=== PATIENT | male | born 1940 | race Caucasian/White ===

== ENCOUNTER 2017-08-13 07:58 | Emergency (ER) | payer MEDICARE, OTHER ==
[2017-08-13] MEDS ORDERED: Sodium Chloride 0.9% 10 ML Syringe FLUSH PRN (08:31)
--- NOTE | 2017-08-13 08:47 | EDM.PDOC ---
ED HPI GENERAL MEDICAL PROBLEM - General Chief Complaint: General Stated Complaint: ER Time Seen by Provider: 08/13/17 07:59 Source of Information: Reports: Patient, Family, RN, RN Notes Reviewed History Limitations: Reports: No Limitations - History of Present Illness INITIAL COMMENTS - FREE TEXT/NARRATIVE: Patient presents to the ED at [facility] complaining of lightheadedness, sweaty, nauseated, and feels like the room was spinning. Patient states the symptoms started this AM while he was on the elliptical. Patient denies any chest pain or SOB. No focal neurological deficits. No diarrhea or vomiting. Patient states he had a similar episode a couple of months ago, but it was of shorter duration and spontaneously resolved. He has a history of diabetes but this is diet controlled. He states he is trying to stay well hydrated with good PO fluid intake. No recent URI's. He feels steady on his feet. He has not fallen or hit his head. Onset: Today, Sudden Onset Date: 08/13/17 - Related Data Allergies Allergy/AdvReac Type Severity Reaction Status Date / Time lactose Allergy Other Verified 08/13/17 08:25 morphine Allergy Headache Verified 08/13/17 08:25 Home Meds: Home Meds Aspirin [Halfprin] 1 tab PO DAILY 01/13/14 [History] Bimatoprost [LUMIGAN 0.01% Ophth Soln] 1 drop EYERT BEDTIME 01/13/14 [History] Brimonidine [Alphagan P 0.15% Ophth Soln] 1 drop EYERT BID 01/13/14 [History] Dorzolamide HCl/Timolol Maleat [Cosopt Eye Drops] 1 drop EYEBOTH BID 01/13/14 [ History] Enalapril Maleate [Vasotec] 20 mg PO DAILY 01/13/14 [History] Hydrochlorothiazide 25 mg PO DAILY 01/13/14 [History] Metoprolol Tartrate [Lopressor] 12.5 mg PO BID 01/13/14 [History] Multivitamin [Multi Vitamin Daily] 1 tab PO DAILY 01/13/14 [History] Nitroglycerin [Nitrostat] 1 tab SL ASDIRECTED PRN 01/13/14 [History] Rivaroxaban [Xarelto] 20 mg PO DAILY 01/13/14 [History] Glucosamine/D3/Boswellia Aleyda [Glucosamine Complex Tablet] 1 cap PO DAILY 12/16 [History] atorvaSTATin [Lipitor] 40 mg PO DAILY 12/16/16 [History] Cholecalciferol (Vitamin D3) [Vitamin D3] 1,000 unit PO DAILY 08/13/17 [History] [place]-3/DHA/Epa/Fish Oil [[place]-3 Fish Oil 1,000 MG Sfgl] 1 cap PO DAILY [History] Past Medical History HEENT History: Reports: Cataract, Glaucoma Cardiovascular History: Reports: Afib, Aneurysm, Arrhythmia, CAD, High Cholesterol, Hypertension, [place], PTCA Other Cardiovascular History: LEFT VENTRICULAR ANEURYSM. ACSENDING AORTIC ANEURYSM Respiratory History: Reports: None Gastrointestinal History: Reports: Colon Polyp Genitourinary History: Reports: BPH, Renal Calculus, Other (See Below) Other Genitourinary History: HYDROCELE Musculoskeletal History: Reports: Arthritis Neurological History: Reports: None Psychiatric History: Reports: None Endocrine/Metabolic History: Reports: Diabetes, Type II, Obesity/BMI 30+ Hematologic History: Reports: None Immunologic History: Reports: None Oncologic (Cancer) History: Reports: Basal Cell Carcinoma, Prostate - Past Surgical History Head Surgeries/Procedures: Reports: None HEENT Surgical History: Reports: Cataract Surgery Musculoskeletal Surgical History: Reports: Arthroscopic Procedure Dermatological Surgical History: Reports: Skin Biopsy Social & Family History - Tobacco Use Smoking Status *Q: Unknown Ever Smoked Years of Tobacco use: 28 Month Tobacco Last Used: 28 years ago - Alcohol Use Days Per Week of Alcohol Use: 0 - Recreational Drug Use Recreational Drug Use: No Drug Use in Last 12 Months: No ED ROS GENERAL - Review of Systems Review Of Systems: See Below Constitutional: Reports: Diaphoresis. Denies: Fever, Chills, Weakness HEENT: Reports: Vertigo. Denies: Vision Change Respiratory: Denies: Shortness of Breath, Cough Cardiovascular: Reports: Lightheadedness. Denies: Chest Pain, Palpitations GI/Abdominal: Reports: Nausea. Denies: Abdominal Pain, Vomiting Skin: Reports: Diaphoresis Neurological: Reports: Dizziness. Denies: Headache, Numbness, Paresthesia, Tingling ED EXAM, GENERAL - Physical Exam Exam: See Below Exam Limited By: No Limitations General Appearance: Alert, No Apparent Distress Respiratory/Chest: No Respiratory Distress, Lungs Clear, Normal Breath Sounds Cardiovascular: Normal Peripheral Pulses, No Edema, Bradycardia Peripheral Pulses: 2+: Radial (L), Radial (R) GI/Abdominal: Normal Bowel Sounds, Soft, Non-Tender Neurological: Alert, Oriented Skin Exam: Warm, Dry, Intact, Normal Color EKG INTERPRETATION EKG Date: 08/13/17 Time: 08:07 Rhythm: NSR Rate (Beats/Min): 51 [place]: LAD-Left [place] Deviation P-Wave: Present QRS: Normal ST-T: Normal QT: Normal IA/PQ Interval: 0.17 EKG Interpretation Comments: 1. Sinus Bradycardia 2. Marked Left axis deviation 3. IVCD Course - Vital Signs Last Recorded V/S: Last Vital Signs Temp 35.9 C 08/13/17 07:58 Pulse 49 L 08/13/17 09:05 Resp 10 L 08/13/17 09:05 BP 126/79 08/13/17 09:05 Pulse Ox 98 08/13/17 09:05 Orthostatic Blood Pressure [ 132/73 Standing] Orthostatic Blood Pressure [ 124/84 Sitting] Orthostatic Blood Pressure [ 139/79 Supine] - Orders/Labs/Meds Orders: Active Orders 24 hr Category Date Time Status EKG 12 Lead [EKG Documentation Completion] [RC] STAT Care 08/13/17 08:02 Active Orthostatic Vital Signs [RC] ONETIME Care 08/13/17 09:21 Active Chest 2V [CR] Stat Exams 08/13/17 08:30 Taken Sodium Chloride 0.9% [Saline Flush] Med 08/13/17 08:31 Active 10 ml FLUSH ASDIRECTED PRN Peripheral IV Insertion Adult [OM.PC] Routine Oth 08/13/17 08:31 Ordered Medication Orders Sodium Chloride (Saline Flush) 10 ml FLUSH ASDIRECTED PRN PRN Reason: Keep Vein Open Labs: Laboratory Tests 08/13/17 08/13/17 08/13/17 Range/Units 08:03 08:14 08:14 WBC 5.8 (4.0-10.0) x10^3/uL RBC 4.36 L (4.5-6.0) x10^6/uL Hgb 14.1 (14.0-18.0) g/dL Hct 41.1 (40.0-52.0) % MCV 94.3 H D (78.0-93.0) fL MCH 32.3 H (26.0-32.0) pg MCHC 34.3 (32.0-36.0) g/dL RDW Coeff of Jamie 13.0 (10.0-15.0) % Plt Count 191 (130-400) x10^3/uL Neut % (Auto) 71.4 (50.0-80.0) % Lymph % (Auto) 13.4 L (25.0-50.0) % Brule % (Auto) 9.4 (2.0-11.0) % Eos % (Auto) 5.3 H (0.0-4.0) % Baso % (Auto) 0.5 (0.2-1.2) % PT (9.8-11.8) SEC INR (2.0-3.5) Sodium 141 (136-145) mmol/L Potassium 3.7 (3.5-5.1) mmol/L Chloride 105 (98-107) mmol/L Carbon Dioxide 26 (21-32) mmol/L BUN 17 (7-18) mg/dL Creatinine 1.2 (0.70-1.30) mg/dL Est Cr Clr Drug Dosing TNP Estimated GFR (MDRD) 59 Glucose 152 H (74-106) mg/dL POC Glucose 148 H (74-106) mg/dL Calcium 9.4 (8.5-10.1) mg/dL Corrected Calcium 9.80 (8.5-10.1) mg/dL Magnesium 1.7 L (1.8-2.4) mg/dL Total Bilirubin 1.0 (0.2-1.0) mg/dL AST 27 (15-37) U/L ALT 29 (16-63) U/L Alkaline Phosphatase 89 (46-116) U/L Creatine Kinase 62 (39-308) U/L Troponin I < 0.017 (<=0.056) ng/mL NT-Pro-B Natriuret Pep (<=450) pg/mL Total Protein 7.6 (6.4-8.2) g/dL Albumin 3.5 (3.4-5.0) g/dL Globulin 4.1 Albumin/Globulin Ratio 0.85 Urine Color (YELLOW) Urine Appearance (CLEAR) Urine pH (5.0-8.0) Ur Specific [place] Urine Protein (NEGATIVE) mg/dL Urine Glucose (UA) (NEGATIVE) mg/dL Urine Ketones (NEGATIVE) mg/dL Urine Occult Blood (NEGATIVE) Urine Nitrite (NEGATIVE) Urine Bilirubin (NEGATIVE) Urine Urobilinogen (0.2) EU/dL Ur Leukocyte Esterase (NEGATIVE) Urine RBC (NOT SEEN) /HPF Urine WBC (NOT SEEN) /HPF Ur Squamous Epith Cells (NEGATIVE) /HPF Urine Bacteria (NEGATIVE) /HPF Urine Mucus (NEGATIVE) /LPF 08/13/17 08/13/17 08/13/17 Range/Units 08:14 08:14 08:50 WBC (4.0-10.0) x10^3/uL RBC (4.5-6.0) x10^6/uL Hgb (14.0-18.0) g/dL Hct (40.0-52.0) % MCV (78.0-93.0) fL MCH (26.0-32.0) pg MCHC (32.0-36.0) g/dL RDW Coeff of Jamie (10.0-15.0) % Plt Count (130-400) x10^3/uL Neut % (Auto) (50.0-80.0) % Lymph % (Auto) (25.0-50.0) % [place] % (Auto) (2.0-11.0) % Eos % (Auto) (0.0-4.0) % Baso % (Auto) (0.2-1.2) % PT 11.4 (9.8-11.8) SEC INR 1.1 L (2.0-3.5) Sodium (136-145) mmol/L Potassium (3.5-5.1) mmol/L Chloride (98-107) mmol/L Carbon Dioxide (21-32) mmol/L BUN (7-18) mg/dL Creatinine (0.70-1.30) mg/dL Est Cr Clr Drug Dosing Estimated GFR (MDRD) Glucose (74-106) mg/dL POC Glucose (74-106) mg/dL Calcium (8.5-10.1) mg/dL Corrected Calcium (8.5-10.1) mg/dL Magnesium (1.8-2.4) mg/dL Total Bilirubin (0.2-1.0) mg/dL AST (15-37) U/L ALT (16-63) U/L Alkaline Phosphatase (46-116) U/L Creatine Kinase (39-308) U/L Troponin I (<=0.056) ng/mL NT-Pro-B Natriuret Pep 79 (<=450) pg/mL Total Protein (6.4-8.2) g/dL Albumin (3.4-5.0) g/dL Globulin Albumin/Globulin Ratio Urine Color Yellow (YELLOW) Urine Appearance Clear (CLEAR) Urine pH 7.0 (5.0-8.0) Ur Specific [place] 1.020 Urine Protein 30 H (NEGATIVE) mg/dL Urine Glucose (UA) Negative (NEGATIVE) mg/dL Urine Ketones Negative (NEGATIVE) mg/dL Urine Occult Blood Trace-intact H (NEGATIVE) Urine Nitrite Negative (NEGATIVE) Urine Bilirubin Negative (NEGATIVE) Urine Urobilinogen 1.0 (0.2) EU/dL Ur Leukocyte Esterase Negative (NEGATIVE) Urine RBC 0-5 (NOT SEEN) /HPF Urine WBC Not seen (NOT SEEN) /HPF Ur Squamous Epith Cells Rare (NEGATIVE) /HPF Urine Bacteria Not seen (NEGATIVE) /HPF Urine Mucus Not seen (NEGATIVE) /LPF Meds: Medications Generic Name Dose Route Start Last Admin Trade Name Freq PRN Reason Stop Dose Admin Sodium Chloride 10 ml 08/13/17 08:31 Saline Flush FLUSH ASDIRECTED PRN Keep Vein Open Discontinued Medications Generic Name Dose Route Start Last Admin Trade Name Freq PRN Reason Stop Dose Admin Ondansetron HCl 4 mg 08/13/17 08:58 08/13/17 09:03 Zofran IVPUSH 08/13/17 08:59 4 mg ONETIME ONE Administration Departure - Departure Time of Disposition: 09:35 Disposition: DC/Tfer to [facility] 02 Clinical Impression: Symptomatic bradycardia, Dizziness, Nausea, Lightheadedness - Discharge Information Forms: Interfacility Transfer EMTALA ED Communication - ED Communication Date/Time Date: 08/13/17 Time Called: 09:30 - Discussed Case With (1) Discussed Case With (1): Admitting Provider (Dr. Paz, Hospitalist. Patient accepted in transfer. Report given.) - Conversation Summary Admitting Provider Agreed to Patient's Admission: Yes Patient Aware of Amendments fo Care Plan: Yes - Problem List Review Problem List Initiated/Reviewed/Updated: Yes - My Orders Last 24 Hours: My Active Orders 08/13/17 08:02 EKG 12 Lead [EKG Documentation Completion] [RC] STAT 08/13/17 08:30 Chest 2V [CR] Stat 08/13/17 08:31 Sodium Chloride 0.9% [Saline Flush] 10 ml FLUSH ASDIRECTED PRN Peripheral IV Insertion Adult [OM.PC] Routine 08/13/17 09:21 Orthostatic Vital Signs [RC] ONETIME - Assessment/Plan Last 24 Hours: My Active Orders 08/13/17 08:02 EKG 12 Lead [EKG Documentation Completion] [RC] STAT 08/13/17 08:30 Chest 2V [CR] Stat 08/13/17 08:31 Sodium Chloride 0.9% [Saline Flush] 10 ml FLUSH ASDIRECTED PRN Peripheral IV Insertion Adult [OM.PC] Routine 08/13/17 09:21 Orthostatic Vital Signs [RC] ONETIME Assessment:: Symptomatic Bradycardia Nausea Dizziness Plan: Patient continues to have some dizziness and nausea. Feels better after Zofran. Will transfer patient to [facility] for symptomatic bradycardia. Case discussed with Dr. Paz, Hospitalist. Patient accepted in transfer. Patient will be sent via ALS ground. Patient agrees with transfer and wishes to proceed.
[2017-08-13 08:56] LABS: CHLORIDE,CL 105 mmol/L (98-107); SODIUM,NA 141 mmol/L (136-145)
[2017-08-13] MEDS ORDERED: Ondansetron 4 MG/2 ML SDV IVPUSH ONE (08:58)
[2017-08-13 10:06] VITALS: BP 138/80
== END 2017-08-13 10:37 | disposition short-term general hospital (02) ==
LOC: VM.ED 07:58
DX: R42 Dizziness and giddiness (principal); R00.1 Bradycardia, unspecified; R11.0 Nausea; E11.9 Type 2 diabetes mellitus without complications; I10 Essential (primary) hypertension; I48.91 Unspecified atrial fibrillation; I25.10 Atherosclerotic heart disease of native coronary artery without angina pectoris; E78.00 Pure hypercholesterolemia, unspecified; Z79.899 Other long term (current) drug therapy; Z79.82 Long term (current) use of aspirin; Z91.011 Allergy to milk products; Z88.5 Allergy status to narcotic agent
CPT/HCPCS: 36415; 71046; 80053; 81001; 82550; 82962; 83735; 83880; 84484; 85025; 85610; 93005; 93010; 96374; 99284-GF-25; 99285; J2405

== ENCOUNTER 2020-06-10 12:57 | Emergency (ER) | payer MEDICARE, OTHER ==
[2020-06-10] MEDS ORDERED: Meperidine PF 100 MG/ML Syringe IVPUSH ONE (13:09)
[2020-06-10] MEDS ORDERED: Ondansetron 4 MG/2 ML SDV IVPUSH PRN (13:09)
--- NOTE | 2020-06-10 13:34 | EDM.PDOC ---
ED HPI GENERAL MEDICAL PROBLEM - General Chief Complaint: Lower Extremity Injury/Pain Stated Complaint: RIGHT LEG IS SWOLLEN Time Seen by Provider: 06/10/20 13:05 Source of Information: Reports: Patient, Family History Limitations: Reports: No Limitations - History of Present Illness INITIAL COMMENTS - FREE TEXT/NARRATIVE: Patient presents today with ongoing right thigh swelling and pain/soreness with intermittent tingling in the foot since waking up this morning he is status post procedure from Friday the where he states he had a cath on the left side of the groin and a procedure done on the right but he cannot recall the procedure he thinks it may have been some kind of a bypass. He states the inner part of his thigh and the back part of thigh is the most te nder and painful out of the area He also has been off his Xarelto since last Friday He denies any prior history of blood clots He denies any coldness or discoloration in the foot or loss of sensation Duration: Hour(s): Quality: Reports: Dull, Pressure, Throbbing Severity: Mild (2/10) Improves with: Reports: None Worsens with: Reports: Movement Right Leg Pain Score (Numeric/FACES): 6 - Related Data Allergies Allergy/AdvReac Type Severity Reaction Status Date / Time lactose Allergy Other Verified 08/13/17 08:25 morphine AdvReac Headache Verified 03/24/20 10:04 Home Meds: Home Meds Aspirin [Halfprin] 81 mg PO DAILY 01/13/14 [History] Bimatoprost [LUMIGAN 0.01% Ophth Soln] 1 drop EYERT BEDTIME 01/13/14 [History] Brimonidine [Alphagan P 0.15% Ophth Soln] 1 drop EYERT BID 01/13/14 [History] Dorzolamide HCl/Timolol Maleat [Cosopt Eye Drops] 1 drop EYEBOTH BID 01/13/14 [History] Enalapril Maleate [Vasotec] 20 mg PO DAILY 01/13/14 [History] Metoprolol Tartrate [Lopressor] 12.5 mg PO BID 01/13/14 [History] Multivitamin [Multi Vitamin Daily] 1 tab PO DAILY 01/13/14 [History] Nitroglycerin [Nitrostat] 1 tab SL ASDIRECTED PRN 01/13/14 [History] Rivaroxaban [Xarelto] 20 mg PO DAILY 01/13/14 [History] Glucosamine/D3/Boswellia Aleyda [Glucosamine Complex Tablet] 1 cap PO DAILY 12/16/16 [History] atorvaSTATin [Lipitor] 40 mg PO DAILY 12/16/16 [History] Cholecalciferol (Vitamin D3) [Vitamin D3] 1,000 unit PO DAILY 08/13/17 [History] [place]-3/DHA/Epa/Fish Oil [[place]-3 Fish Oil 1,000 MG Sfgl] 1 cap PO DAILY 08/13/17 [History] Past Medical History HEENT History: Reports: Cataract, Glaucoma Cardiovascular History: Reports: Afib, Aneurysm, Arrhythmia, CAD, High Cholesterol, Hypertension, [place], PTCA Other Cardiovascular History: LEFT VENTRICULAR ANEURYSM. ACSENDING AORTIC ANEURYSM Respiratory History: Reports: None Gastrointestinal History: Reports: Colon Polyp Genitourinary History: Reports: BPH, Renal Calculus, Other (See Below) Other Genitourinary History: HYDROCELE Musculoskeletal History: Reports: Arthritis Neurological History: Reports: None Psychiatric History: Reports: None Endocrine/Metabolic History: Reports: Diabetes, Type II, Obesity/BMI 30+ Hematologic History: Reports: None Immunologic History: Reports: None Oncologic (Cancer) History: Reports: Basal Cell Carcinoma, Prostate - Past Surgical History Head Surgeries/Procedures: Reports: None HEENT Surgical History: Reports: Cataract Surgery Musculoskeletal Surgical History: Reports: Arthroscopic Procedure Dermatological Surgical History: Reports: Skin Biopsy Review of Systems - Review of Systems Review Of Systems: See Below Constitutional: Reports: No Symptoms Eyes: Reports: No Symptoms Ears: Reports: No Symptoms Nose: Reports: No Symptoms Mouth/Throat: Reports: No Symptoms Respiratory: Reports: No Symptoms Cardiovascular: Reports: No Symptoms GI/Abdominal: Reports: No Symptoms Genitourinary: Reports: No Symptoms Musculoskeletal: Reports: Leg Pain Skin: Reports: No Symptoms Neurological: Reports: No Symptoms Psychiatric: Reports: No Symptoms ED EXAM, GENERAL - Physical Exam Exam: See Below Exam Limited By: No Limitations General Appearance: Alert, WD/WN, No Apparent Distress Neck: Normal Inspection, Full Range of Motion Respiratory/Chest: No Respiratory Distress, Lungs Clear, Normal Breath Sounds, No Accessory Muscle Use, Chest Non-Tender Cardiovascular: Normal Peripheral Pulses, Regular Rate, Rhythm, No Edema, No Gallop, No JVD, No Murmur, No Rub GI/Abdominal: Normal Bowel Sounds, Soft, Non-Tender, No Organomegaly, No Distention Back Exam: Normal Inspection, Full Range of Motion Extremities: Normal Range of Motion, Normal Capillary Refill, Other (Exam to the left groin there is a noted access puncture wound does not appear to be infected nor is there any secondary hematoma noted he has good pulses). No: Normal Inspection, Non-Tender, No Pedal Edema Neurological: Alert, Oriented, CN II-XII Intact, Normal Cognition, Normal Gait, Normal Reflexes, No Motor/Sensory Deficits Psychiatric: Normal Affect, Normal Mood Course - Vital Signs Text/Narrative:: Patient states he saw Dr. Abdi at [facility] for the procedure Right comman iliac artey hematoma removal Per Dr Venegas 1345 int rad agrees pt needs US have pt sent through ER for US and further work up per Dr Ramirez ER will accept pt and transfer. 1350 PT will go POV Last Recorded V/S: Last Vital Signs Temp 36.3 C 06/10/20 13:45 Pulse 66 06/10/20 13:45 Resp 20 06/10/20 13:45 BP 134/75 06/10/20 13:45 Pulse Ox 96 06/10/20 13:45 Departure - Departure Time of Disposition: 14:00 Disposition: Home, Self-Care 01 Condition: Good Clinical Impression: Leg pain, right - Discharge Information *PRESCRIPTION DRUG MONITORING PROGRAM REVIEWED*: No *COPY OF PRESCRIPTION DRUG MONITORING REPORT IN PATIENT ABIMBOLA: No Referrals: Kylie Zee, DO [Primary Care Provider] - Forms: ED Department Discharge, Interfacility Transfer EMTALA Additional Instructions: Go directly to the emergency room at [facility] in [place] do not eat or drink anything until seen in the ER You should be seen by Dr. Ramirez in the emergency room or by Dr. Venegas or interventional radiology upon checking in through the ER Sepsis Event Note (ED) - Focused Exam Vital Signs: Vital Signs Temp Pulse Resp BP Pulse Ox 06/10/20 13:45 36.3 C 66 20 134/75 96 - Problem List & Annotations (1) Leg pain, right SNOMED Code(s): 485878607 Code(s): M79.604 - PAIN IN RIGHT LEG Status: Acute
[2020-06-10 13:51] VITALS: BP 134/75; PULSE 66
== END 2020-06-10 14:34 | disposition home or self-care (01) ==
LOC: VM.ED 12:57
DX: M79.651 Pain in right thigh (principal); I48.91 Unspecified atrial fibrillation; I25.10 Atherosclerotic heart disease of native coronary artery without angina pectoris; E78.00 Pure hypercholesterolemia, unspecified; I10 Essential (primary) hypertension; I25.2 Old myocardial infarction; E11.9 Type 2 diabetes mellitus without complications; E66.9 Obesity, unspecified; M19.90 Unspecified osteoarthritis, unspecified site; Z68.30 Body mass index [BMI] 30.0-30.9, adult; Z79.01 Long term (current) use of anticoagulants; Z79.82 Long term (current) use of aspirin; Z88.5 Allergy status to narcotic agent; Z91.048 Other nonmedicinal substance allergy status; Z79.899 Other long term (current) drug therapy
CPT/HCPCS: 99283; 99284

== ENCOUNTER 2020-07-19 22:27 | Emergency (ER) | payer MEDICARE, OTHER ==
[2020-07-19] MEDS ORDERED: methylPREDNISolone Sodium Succinate 125 MG/2 ML SDV IVPUSH ONE (22:46)
[2020-07-19] MEDS ORDERED: Dexamethasone 4 MG/ML SDV IVPUSH ONE (22:46)
--- NOTE | 2020-07-19 22:52 | EDM.PDOC ---
ED HPI GENERAL MEDICAL PROBLEM - General Chief Complaint: Back Pain or Injury Stated Complaint: Sciatica Time Seen by Provider: 07/19/20 22:45 Source of Information: Reports: Patient, EMS History Limitations: Reports: No Limitations - History of Present Illness INITIAL COMMENTS - FREE TEXT/NARRATIVE: 80-year-old white male that is brought in via EMS after being home with a sudden sharp flareup of his right-sided sciatica lower back pain. Patient states it started about an hour and a half ago that he rates pain is a 12 out of 10. States he took 4 Tylenol try to get some relief but he could not and and he called EMS. Patient states he has been dealing with this for probably 10 years. He has had multiple work-ups CTs MRIs been told he had bulging disc and chronic sciatica that flares up a couple times a year. He states this is no different than his prior pain is at the right side lower back going down his mid butt cheek down to the backside of his knee. Patient does have a significant history he has had a femoral stent placed on the right side that was placed on 28 June with no issues along with cardiac stent he has type II diabetic and takes Metformin but he states all that has been fine. He does have follow-up within the month with [facility] for another injection into his back which he states usually knocks the pain out for about a year if he is [place]. He denies any change of his normal pain with this he denies any numbness or tingling or loss of sensation no coldness to the extremity or discoloration to the extremity. He says he was just at the house sit down when it hit him all of a sudden. He has no loss of bowel or bladder any issues with either he is currently on Xarelto but denies any bleeding issues no dark or tarry stools no abdominal pain EMS gave 1 mg of Dilaudid with 2.5 mg IV Valium patient states he is starting to get some relief with it. Onset: Today Duration: Hour(s): Location: Reports: Back Quality: Reports: Burning, Sharp, Stabbing, Throbbing Severity: Severe Improves with: Reports: Rest Worsens with: Reports: Movement Associated Symptoms: Reports: No Other Symptoms. Denies: Confusion, Chest Pain, Cough, Diaphoresis, Fever/Chills, Headaches, Loss of Appetite, Nausea/Vomiting right lower back, down to the right hip and knee Pain Score (Numeric/FACES): 4 - Related Data Allergies Allergy/AdvReac Type Severity Reaction Status Date / Time lactose Allergy Other Verified 07/19/20 23:09 morphine AdvReac Headache Verified 07/19/20 23:09 Home Meds: Home Meds Aspirin [Halfprin] 81 mg PO DAILY 01/13/14 [History] Bimatoprost [LUMIGAN 0.01% Ophth Soln] 1 drop EYERT BEDTIME 01/13/14 [History] Brimonidine [Alphagan P 0.15% Ophth Soln] 1 drop EYERT BID 01/13/14 [History] Dorzolamide HCl/Timolol Maleat [Cosopt Eye Drops] 1 drop EYEBOTH BID 01/13/14 [History] Enalapril Maleate [Vasotec] 10 mg PO DAILY 01/13/14 [History] Metoprolol Tartrate [Lopressor] 12.5 mg PO BID 01/13/14 [History] Multivitamin [Multi Vitamin Daily] 1 tab PO DAILY 01/13/14 [History] Nitroglycerin [Nitrostat] 1 tab SL ASDIRECTED PRN 01/13/14 [History] Rivaroxaban [Xarelto] 20 mg PO DAILY 01/13/14 [History] Glucosamine/D3/Boswellia Aleyda [Glucosamine Complex Tablet] 1 cap PO DAILY 12/16/16 [History] atorvaSTATin [Lipitor] 40 mg PO DAILY 12/16/16 [History] Cholecalciferol (Vitamin D3) [Vitamin D3] 1,000 unit PO DAILY 08/13/17 [History] [place]-3/DHA/Epa/Fish Oil [[place]-3 Fish Oil 1,000 MG Sfgl] 1 cap PO DAILY 08/13/17 [History] Clopidogrel [Plavix] 75 mg PO DAILY 06/29/20 [History] Psyllium Husk (With Sugar) [Metamucil Powder] 1 tbsp PO DAILY 06/29/20 [History] hydroCHLOROthiazide [Hydrochlorothiazide] 25 mg PO DAILY 06/29/20 [History] metFORMIN HCl [Glucophage] 500 mg PO DAILY 06/29/20 [History] Enoxaparin [Lovenox] 40 mg SUBCUT DAILY 7 Days #7 syringe 07/11/20 [Rx] Past Medical History HEENT History: Reports: Cataract, Glaucoma Cardiovascular History: Reports: Afib, Aneurysm, Arrhythmia, CAD, High Cholesterol, Hypertension, [place], PTCA Other Cardiovascular History: LEFT VENTRICULAR ANEURYSM. ACSENDING AORTIC ANEURYSM. Edema Respiratory History: Reports: None Gastrointestinal History: Reports: Colon Polyp Genitourinary History: Reports: BPH, Renal Calculus, Other (See Below) Other Genitourinary History: HYDROCELE Musculoskeletal History: Reports: Arthritis, Back Pain, Chronic Other Musculoskeletal History: Chronic right-sided low back without sciatica. Right Leg pain (swelling) Neurological History: Reports: None Psychiatric History: Reports: None. Denies: Abuse, Victim of Endocrine/Metabolic History: Reports: Diabetes, Type II, Obesity/BMI 30+ Hematologic History: Reports: None Immunologic History: Reports: None Oncologic (Cancer) History: Reports: Basal Cell Carcinoma, Prostate Dermatologic History: Reports: Other (See Below) Other Dermatologic History: warts - Past Surgical History Head Surgeries/Procedures: Reports: Other (See Below) HEENT Surgical History: Reports: Cataract Surgery GI Surgical History: Reports: Colonoscopy Male Surgical History: Reports: Lithotripsy (ESWL), Vasectomy Musculoskeletal Surgical History: Reports: Arthroscopic Procedure Other Musculoskeletal Surgeries/Procedures:: ELBOW. 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 Denies: Discharge, Dysuria, Flank Pain, Frequency, Urgency Musculoskeletal: Reports: Back Pain, Leg Pain. Denies: Neck Pain Skin: Reports: No Symptoms Neurological: Reports: Difficulty Walking, Other (After the pain he had only normal gait up to then). Denies: Dizziness, Numbness, Paresthesia, Tingling, Weakness Psychiatric: Reports: No Symptoms Hematologic/Lymphatic: Reports: No Symptoms Immunologic: Reports: No Symptoms ED EXAM,LOWER BACK PAIN/INJURY - Physical Exam Exam: See Below Exam Limited By: No Limitations General Appearance: Alert, WD/WN, Mild Distress Eye Exam: Bilateral Eye: EOMI, Normal Inspection Nose: Normal Inspection Throat/Mouth: Normal Inspection, Normal Lips, Normal Teeth, Normal Gums, Normal Oropharynx, Normal Voice, No Airway Compromise Respiratory/Chest: No Respiratory Distress, Lungs Clear, Normal Breath Sounds, No Accessory Muscle Use, Chest Non-Tender Cardiovascular: Normal Peripheral Pulses, Regular Rate, Rhythm, No Edema, No Gallop, No JVD, No Murmur, No Rub GI/Abdominal: Normal Bowel Sounds, Soft, Non-Tender, No Organomegaly, No Distention Back Exam: Normal Inspection, Other (Patient has positive tenderness palpation approximately over the right paraspinal ill 4 5 area with positive tenderness palpation reproduction of pain over the sciatic notch ). No: Full Range of Motion, Vertebral Tenderness Extremities: Normal Inspection, Normal Range of Motion, Non-Tender, No Pedal Edema, Normal Capillary Refill, Other (She has good cap refill and color to the lower extremity along with positive dorsalis pedis posterior tibialis he has normal soft touch equal sensation he also has good right-sided femoral pulses he has normal range of motion but it is extremely painful him to flex and extend he states he is more comfortable laying down with the ice over the sciatic notch.) Neurological: Alert, Normal Mood/Affect, Normal Dorsiflexion, CN II-XII Intact, Normal Plantar Flexion, No Motor/Sensory Deficits, Oriented x 3 Psychiatric: Normal Affect Skin Exam: Warm, Intact, Normal Color Course - Vital Signs Text/Narrative:: Patient was given Decadron 4 mg IV Solu-Medrol 125 mg IV secondary to the IV dose of Dilaudid in 2.5 mg of Valium and already having for Tylenol narcotics will be held at this time Last Recorded V/S: Last Vital Signs Temp 36.6 C 07/19/20 22:52 Pulse 68 07/19/20 22:52 Resp 20 07/19/20 22:52 BP 147/93 H 07/19/20 22:52 Pulse Ox 98 07/19/20 22:52 - Orders/Labs/Meds Meds: Medications Discontinued Medications Generic Name Dose Route Start Last Admin Trade Name Freq PRN Reason Stop Dose Admin Dexamethasone 4 mg 07/19/20 22:46 07/19/20 23:04 Decadron IVPUSH 07/19/20 22:47 4 mg ONETIME ONE Administration Methylprednisolone Sodium Succinate 125 mg 07/19/20 22:46 07/19/20 23:02 Solu-Medrol IVPUSH 07/19/20 22:47 125 mg ONETIME ONE Administration Oxycodone HCl 5 mg 07/19/20 23:02 07/19/20 23:25 Oxycodone PO 07/19/20 23:03 5 mg ONETIME ONE Administration Oxycodone HCl 5 mg 07/19/20 23:50 07/20/20 00:02 Oxycodone PO 5 mg Q6H PRN Administration Pain (severe 7-10) Departure - Departure Time of Disposition: 23:50 Disposition: Home, Self-Care 01 Condition: Good Clinical Impression: Acute back pain with sciatica - Discharge Information *PRESCRIPTION DRUG MONITORING PROGRAM REVIEWED*: No *COPY OF PRESCRIPTION DRUG MONITORING REPORT IN PATIENT ABIMBOLA: No Instructions: Sciatica, [id number] Referrals: Kylie Zee DO [Primary Care Provider] - Forms: ED Department Discharge Additional Instructions: Follow-up with your primary care provider in the next 24 to 48 hours Take all medications as directed You may apply ice/heat to the area what ever makes more comfortable usually 1 hour on 1 hour off with either You may take the oxycodone 5 mg 1 tablet every 6-8 hours Sepsis Event Note (ED) - Focused Exam Vital Signs: Vital Signs Temp Pulse Resp BP Pulse Ox 07/19/20 22:52 36.6 C 68 20 147/93 H 98 - Problem List & Annotations (1) Acute back pain with sciatica SNOMED Code(s): 240763286 Code(s): M54.40 - LUMBAGO WITH SCIATICA, UNSPECIFIED SIDE Status: Acute
[2020-07-19] MEDS ORDERED: oxyCODONE 5 MG Tab PO ONE (23:02)
[2020-07-19 23:09] VITALS: BP 147/93; PULSE 68
[2020-07-19] MEDS ORDERED: oxyCODONE 5 MG Tab PO PRN (23:50)
== END 2020-07-20 00:02 | disposition home or self-care (01) ==
LOC: VM.ED 22:27
DX: M54.41 Lumbago with sciatica, right side (principal); I48.91 Unspecified atrial fibrillation; I25.10 Atherosclerotic heart disease of native coronary artery without angina pectoris; E78.00 Pure hypercholesterolemia, unspecified; I25.2 Old myocardial infarction; N40.0 Benign prostatic hyperplasia without lower urinary tract symptoms; E11.9 Type 2 diabetes mellitus without complications; I10 Essential (primary) hypertension; M19.90 Unspecified osteoarthritis, unspecified site; E66.9 Obesity, unspecified; Z68.30 Body mass index [BMI] 30.0-30.9, adult; Z79.82 Long term (current) use of aspirin; Z79.899 Other long term (current) drug therapy; Z79.01 Long term (current) use of anticoagulants; Z79.02 Long term (current) use of antithrombotics/antiplatelets; Z79.84 Long term (current) use of oral hypoglycemic drugs; Z91.048 Other nonmedicinal substance allergy status; Z88.5 Allergy status to narcotic agent; Z95.5 Presence of coronary angioplasty implant and graft
CPT/HCPCS: 96374; 96375; 99284; 99284-25; A9270-GY; J1100; J2930

== ENCOUNTER 2020-08-02 23:30 | Emergency (ER) | payer MEDICARE, OTHER ==
[2020-08-02] MEDS ORDERED: Sodium Chloride 0.9% 10 ML Syringe FLUSH PRN (23:38)
[2020-08-02] MEDS ORDERED: HYDROmorphone 0.5 MG/0.5 ML Syringe IV ONE (23:39)
[2020-08-02] MEDS: Lactated Ringers 1,000 ML IV ONE (23:55)
[2020-08-02] MEDS: HYDROmorphone 1 MG/ML Syringe IVPUSH ONE (23:56)
[2020-08-02] MEDS: diphenhydrAMINE 50 MG/ML SDV IVPUSH ONE (23:57)
[2020-08-03] MEDS: fentaNYL 100 MCG/2 ML SDV IVPUSH ONE (00:13)
[2020-08-03 00:25] LABS: PTT,PARTIAL THROMBOPLSTIN TIME 29.7 SEC (25.6-32.8)
[2020-08-03 00:26] LABS: ANION GAP 15.5 mmol/L (5-15)
--- NOTE | 2020-08-03 00:27 | EDM.PDOC ---
ED HPI GENERAL MEDICAL PROBLEM - General Chief Complaint: Abdominal Pain Stated Complaint: Right groin, RLQ pain, chronic back/leg pain Time Seen by Provider: 08/02/20 23:40 Source of Information: Reports: Patient History Limitations: Reports: No Limitations - History of Present Illness INITIAL COMMENTS - FREE TEXT/NARRATIVE: Patient comes emergency department today from home with complaints of abdominal pain and chronic back and leg pain. This patient this afternoon developed severe right lower abdominal pain that radiated over to his left side. He has not had any falls or recent trauma. He had some nausea earlier this without vomiting. He did have some difficulty voiding earlier today getting his urine started but he has no dysuria or urinary frequency. No hematuria. He does have a rather significant history of chronic back pain that radiates from his right lower back down the mid buttocks and down his leg. It is been doing quite well but since the development of this abdominal pain this has "triggered" his chronic back pain. This is not the worst back pain he has ever had but it is very close. He has severe shooting pain in his right lower back that radiates down his right leg. It is a burning searing pain down his leg. He has had no recent falls trauma or injury. He has had no loss of bowel or bladder. He is currently on Xarelto following a femoral stent. On the right side. His abdominal pain has slowly gotten better as time is gone on this evening and he does not even feel it anymore. Although his pain is very severe in his back. He has no chest pain no shortness of breath or difficulty breathing. No cough or congestion. No fever no chills. No weakness or paresthesias of his upper or lower extremities. He is able to ambulate without difficulty other than the severe pain in his back. No COVID exposure no COVID symptoms. Right groin/RLQ Pain Score (Numeric/FACES): 0 Right lower back/leg Pain Score (Numeric/FACES): 10 - Related Data Allergies Allergy/AdvReac Type Severity Reaction Status Date / Time lactose Allergy Other Verified 08/02/20 23:43 morphine AdvReac Headache Verified 08/02/20 23:43 Home Meds: Home Meds Bimatoprost [LUMIGAN 0.01% Ophth Soln] 1 drop EYERT BEDTIME 01/13/14 [History] Brimonidine [Alphagan P 0.15% Ophth Soln] 1 drop EYERT BID 01/13/14 [History] Dorzolamide HCl/Timolol Maleat [Cosopt Eye Drops] 1 drop EYEBOTH BID 01/13/14 [History] Enalapril Maleate [Vasotec] 10 mg PO DAILY 01/13/14 [History] Metoprolol Tartrate [Lopressor] 12.5 mg PO BID 01/13/14 [History] Multivitamin [Multi Vitamin Daily] 1 tab PO DAILY 01/13/14 [History] Nitroglycerin [Nitrostat] 1 tab SL ASDIRECTED PRN 01/13/14 [History] Rivaroxaban [Xarelto] 20 mg PO DAILY 01/13/14 [History] Glucosamine/D3/Boswellia Aleyda [Glucosamine Complex Tablet] 1 cap PO DAILY 12/16/16 [History] atorvaSTATin [Lipitor] 40 mg PO DAILY 12/16/16 [History] Cholecalciferol (Vitamin D3) [Vitamin D3] 1,000 unit PO DAILY 08/13/17 [History] [place]-3/DHA/Epa/Fish Oil [[place]-3 Fish Oil 1,000 MG Sfgl] 1 cap PO DAILY 08/13/17 [History] Clopidogrel [Plavix] 75 mg PO DAILY 06/29/20 [History] Psyllium Husk (With Sugar) [Metamucil Powder] 1 tbsp PO DAILY 06/29/20 [History] hydroCHLOROthiazide [Hydrochlorothiazide] 25 mg PO DAILY 06/29/20 [History] metFORMIN HCl [Glucophage] 500 mg PO DAILY 06/29/20 [History] Enoxaparin [Lovenox] 40 mg SUBCUT DAILY 7 Days #7 syringe 07/11/20 [Rx] Past Medical History HEENT History: Reports: Cataract, Glaucoma Cardiovascular History: Reports: Afib, Aneurysm, Arrhythmia, CAD, High Cholesterol, Hypertension, [place], PTCA Other Cardiovascular History: LEFT VENTRICULAR ANEURYSM. ACSENDING AORTIC ANEURYSM. Edema Respiratory History: Reports: None Gastrointestinal History: Reports: Colon Polyp Genitourinary History: Reports: BPH, Renal Calculus, Other (See Below) Other Genitourinary History: HYDROCELE Musculoskeletal History: Reports: Arthritis, Back Pain, Chronic Other Musculoskeletal History: Chronic right-sided low back without sciatica. Right Leg pain (swelling) Neurological History: Reports: None Psychiatric History: Reports: None Endocrine/Metabolic History: Reports: Diabetes, Type II, Obesity/BMI 30+ Hematologic History: Reports: None Immunologic History: Reports: None Oncologic (Cancer) History: Reports: Basal Cell Carcinoma, Prostate Dermatologic History: Reports: Other (See Below) Other Dermatologic History: warts - Past Surgical History Head Surgeries/Procedures: Reports: Other (See Below) HEENT Surgical History: Reports: Cataract Surgery GI Surgical History: Reports: Colonoscopy Male Surgical History: Reports: Lithotripsy (ESWL), Vasectomy Musculoskeletal Surgical History: Reports: Arthroscopic Procedure Other Musculoskeletal Surgeries/Procedures:: ELBOW. 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 ED EXAM, GI/ABD - Physical Exam Exam: See Below Text/Narrative:: This patient appears quite anxious. He is clenching his legs hands and grimacing and constantly thrashing about the cart. Exam Limited By: No Limitations General Appearance: Alert, WD/WN, Anxious Eyes: Bilateral: EOMI Ears: Normal External Exam Nose: Normal Inspection Throat/Mouth: Normal Inspection Head: Atraumatic, Normocephalic Neck: Normal Inspection, Supple, Non-Tender Respiratory/Chest: No Respiratory Distress, Lungs Clear, Normal Breath Sounds, Chest Non-Tender Cardiovascular: Normal Peripheral Pulses, Regular Rate, Rhythm GI/Abdominal Exam: Normal Bowel Sounds, Soft, Pelvis Stable, Guarding (He has guarding to the right lower quadrant at McBurney's point), Rebound (He has rebound tenderness at McBurney's point to the right lower quadrant. He also has a positive peritoneal sign with peritoneal flick.), Other (Although his exam is somewhat difficult to tell if it is his abd pain or back pain due to thrashing about the cot. ). No: Rigid (His abdomen is not rigid.), Hepatomegaly, Splenomegaly (Male) Exam: Deferred Rectal (Males) Exam: Deferred Back Exam: No: CVA Tenderness (L), CVA Tenderness (R), Paraspinal Tenderness, Vertebral Tenderness Extremities: Normal Inspection, Normal Range of Motion, Normal Capillary Refill Neurological: Alert, Oriented, CN II-XII Intact, Normal Cognition, No Motor/Sensory Deficits Psychiatric: Anxious Skin Exam: Warm, Dry, Intact, Normal Color, No Rash Course - Vital Signs Last Recorded V/S: Last Vital Signs Temp 97.2 F 08/02/20 23:30 Pulse 71 08/03/20 02:30 Resp 16 08/03/20 02:30 BP 159/97 H 08/03/20 02:30 Pulse Ox 96 08/02/20 23:30 - Orders/Labs/Meds Orders: Active Orders 24 hr Category Date Time Status Peripheral IV Insertion Adult [OM.PC] Stat Oth 08/02/20 23:38 Ordered Labs: Laboratory Tests 08/02/20 08/02/20 08/02/20 Range/Units 23:53 23:53 23:53 WBC 8.9 (4.0-10.0) x10^3/uL RBC 3.66 L (4.5-6.0) x10^6/uL Hgb 11.5 L D (14.0-18.0) g/dL Hct 34.4 L (40.0-52.0) % MCV 94.0 H (78.0-93.0) fL MCH 31.4 (26.0-32.0) pg MCHC 33.4 (32.0-36.0) g/dL RDW Coeff of Jamie 13.4 (10.0-15.0) % Plt Count 195 (130-400) x10^3/uL Neut % (Auto) 86.8 H (50.0-80.0) % Lymph % (Auto) 6.1 L (25.0-50.0) % [place] % (Auto) 5.7 (2.0-11.0) % Eos % (Auto) 1.1 (0.0-4.0) % Baso % (Auto) 0.3 (0.2-1.2) % PT 11.2 (9.9-12.5) SEC INR 1.0 L (2.0-3.5) APTT 29.7 (25.6-32.8) SEC Sodium 141 (136-145) mmol/L Potassium 3.5 (3.5-5.1) mmol/L Chloride 103 (98-107) mmol/L Carbon Dioxide 26 (21-32) mmol/L Anion Gap 15.5 H (5-15) mmol/L BUN 14 (7-18) mg/dL Creatinine 1.4 H (0.70-1.30) mg/dL Est Cr Clr Drug Dosing 49.14 mL/min Estimated GFR (MDRD) 49 Glucose 159 H (74-106) mg/dL Lactic Acid (0.4-2.0) mmol/L Calcium 9.6 (8.5-10.1) mg/dL Corrected Calcium 10.16 H (8.5-10.1) mg/dL Total Bilirubin 0.8 (0.2-1.0) mg/dL AST 24 (15-37) U/L ALT 24 (16-63) U/L Alkaline Phosphatase 79 (46-116) U/L C-Reactive Protein 0.2 (<=0.9) mg/dL Total Protein 7.7 (6.4-8.2) g/dL Albumin 3.3 L (3.4-5.0) g/dL Globulin 4.4 Albumin/Globulin Ratio 0.75 Lipase 124 (73-393) U/L Urine Color (YELLOW) Urine Appearance (CLEAR) Urine pH (5.0-8.0) Ur Specific [place] Urine Protein (NEGATIVE) mg/dL Urine Glucose (UA) (NEGATIVE) mg/dL Urine Ketones (NEGATIVE) mg/dL Urine Occult Blood (NEGATIVE) Urine Nitrite (NEGATIVE) Urine Bilirubin (NEGATIVE) Urine Urobilinogen (0.2) EU/dL Ur Leukocyte Esterase (NEGATIVE) Urine RBC (NOT SEEN) /HPF Urine WBC (NOT SEEN) /HPF Ur Squamous Epith Cells (NEGATIVE) /HPF Amorphous Sediment Urine Bacteria (NEGATIVE) /HPF Urine Mucus (NEGATIVE) /LPF 08/02/20 08/03/20 Range/Units 23:53 00:40 WBC (4.0-10.0) x10^3/uL RBC (4.5-6.0) x10^6/uL Hgb (14.0-18.0) g/dL Hct (40.0-52.0) % MCV (78.0-93.0) fL MCH (26.0-32.0) pg MCHC (32.0-36.0) g/dL RDW Coeff of Jamie (10.0-15.0) % Plt Count (130-400) x10^3/uL Neut % (Auto) (50.0-80.0) % Lymph % (Auto) (25.0-50.0) % [place] % (Auto) (2.0-11.0) % Eos % (Auto) (0.0-4.0) % Baso % (Auto) (0.2-1.2) % PT (9.9-12.5) SEC INR (2.0-3.5) APTT (25.6-32.8) SEC Sodium (136-145) mmol/L Potassium (3.5-5.1) mmol/L Chloride (98-107) mmol/L Carbon Dioxide (21-32) mmol/L Anion Gap (5-15) mmol/L BUN (7-18) mg/dL Creatinine (0.70-1.30) mg/dL Est Cr Clr Drug Dosing mL/min Estimated GFR (MDRD) Glucose (74-106) mg/dL Lactic Acid 2.2 H* (0.4-2.0) mmol/L Calcium (8.5-10.1) mg/dL Corrected Calcium (8.5-10.1) mg/dL Total Bilirubin (0.2-1.0) mg/dL AST (15-37) U/L ALT (16-63) U/L Alkaline Phosphatase (46-116) U/L C-Reactive Protein (<=0.9) mg/dL Total Protein (6.4-8.2) g/dL Albumin (3.4-5.0) g/dL Globulin Albumin/Globulin Ratio Lipase (73-393) U/L Urine Color Dark yellow H (YELLOW) Urine Appearance Clear (CLEAR) Urine pH 7.0 (5.0-8.0) Ur Specific [place] 1.020 Urine Protein 30 H (NEGATIVE) mg/dL Urine Glucose (UA) Negative (NEGATIVE) mg/dL Urine Ketones Trace H (NEGATIVE) mg/dL Urine Occult Blood Trace-intact H (NEGATIVE) Urine Nitrite Negative (NEGATIVE) Urine Bilirubin Negative (NEGATIVE) Urine Urobilinogen 0.2 (0.2) EU/dL Ur Leukocyte Esterase Negative (NEGATIVE) Urine RBC 0-5 (NOT SEEN) /HPF Urine WBC Not seen (NOT SEEN) /HPF Ur Squamous Epith Cells Not seen (NEGATIVE) /HPF Amorphous Sediment Rare Urine Bacteria Rare (NEGATIVE) /HPF Urine Mucus Rare H (NEGATIVE) /LPF Meds: Medications Discontinued Medications Generic Name Dose Route Start Last Admin Trade Name Freq PRN Reason Stop Dose Admin Diazepam 2.5 mg 08/03/20 00:30 08/03/20 00:40 Valium IV 08/03/20 00:31 2.5 mg NOW STA Administration Diphenhydramine HCl 25 mg 08/02/20 23:39 08/02/20 23:57 Benadryl IVPUSH 08/02/20 23:40 25 mg ONETIME ONE Administration Fentanyl 100 mcg 08/03/20 00:09 08/03/20 00:13 Sublimaze IVPUSH 08/03/20 00:10 100 mcg ONETIME ONE Administration Hydromorphone HCl 0.5 mg 08/02/20 23:39 Dilaudid IV 08/02/20 23:40 ONETIME ONE Hydromorphone HCl 1 mg 08/02/20 23:40 08/02/20 23:56 Dilaudid IVPUSH 08/02/20 23:41 1 mg ONETIME ONE Administration Lactated Ringer's 1,000 mls @ 999 mls/hr 08/02/20 23:40 08/02/20 23:55 Ringers, Lactated IV 08/03/20 00:40 999 mls/hr ONETIME ONE Administration Iopamidol 100 ml 08/03/20 00:03 08/03/20 01:01 Isovue-300 (61%) IVPUSH 08/03/20 00:04 100 ml ONETIME ONE Administration Polyethylene Glycol 34 gm 08/03/20 02:14 08/03/20 02:20 Miralax PO 08/03/20 02:15 34 gm ONETIME ONE Administration Sodium Chloride 10 ml 08/02/20 23:38 Saline Flush FLUSH ASDIRECTED PRN Keep Vein Open - Re-Assessments/Exams Free Text/Narrative Re-Assessment/Exam: 08/03/20 00:25 IV established. Labs drawn. LR 500ml bolus and then 125mls/hr Dilaudid 1mg IVP and benadryl 25mg IVP with absolutely no change in his pain or thrashing about the cot. Fentanyl 100mcg IVP. CT abd/pelvis with contrast due to possibility of appendicitis. Laboratory evaluation with a normal white blood cell count 8.9 hemoglobin 11.5 platelets 195. Creatinine 1.4 which is at about his baseline. Lactic acid mildly elevated at 2.2. Liver enzymes are normal. Urine is noninfectious appearing. Negative leukocytes nitrites. As stated previously the patient's abdominal pain is pretty much resolved on his arrival and is really complaining more of his chronic back pain. But he yeast distiller on palpation his right lower quadrant. He is still quite anxious and thrashing about the bed. He was given 2.5 mg of Valium with much improvement of his symptoms. CT abdomen pelvis per radiology shows no sign of acute appendicitis. 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 I really not sure what is causing his abdominal pain at this time. His laboratory evaluation is rather unremarkable for any acute infectious process. His chronic appearing mass lesion in the right pelvis is unchanged from previous. There is no active signs of bleeding in his abdomen. He CT is otherwise negative for any acute findings. He did have quite a bit of improvement with the above therapy. He is planning to see his pain management provider the [facility] here in [place] tomorrow. We will discharge him home at t his time. His pain is back down to a 1 he is quite comfortable at this time. Discharge directions as below are explained to the patient he was comfortable with this plan and his questions were answered. Departure - Departure Time of Disposition: 02:11 Disposition: Home, Self-Care 01 Clinical Impression: Abdominal pain of unknown cause, Lumbosacral radiculopathy - Discharge Information *PRESCRIPTION DRUG MONITORING PROGRAM REVIEWED*: Not Applicable *COPY OF PRESCRIPTION DRUG MONITORING REPORT IN PATIENT ABIMBOLA: Not Applicable Instructions: Constipation, Adult, [id number], Pain Medicine Instructions, [id number], Lumbosacral Radiculopathy Referrals: PCP,Unobtain [Ordering Only Provider] - Forms: ED Department Discharge Additional Instructions: See [facility] for your chronic pain tomorrow as already set up. Drink plenty of fluids the next few days. Miralax 1 capful in a large glass of water every day until easy smooth bowel movements to see if this helps with your abd pain. Return to the ED if new or worsening symptoms. Follow up with PCP in the next 4-6 days if not improving sooner if worse. Sepsis Event Note (ED) - Evaluation Sepsis Screening Result: No Definite Risk - My Orders Last 24 Hours: My Active Orders 08/02/20 23:38 Peripheral IV Insertion Adult [OM.PC] Stat - Assessment/Plan Last 24 Hours: My Active Orders 08/02/20 23:38 Peripheral IV Insertion Adult [OM.PC] Stat Assessment:: Abd pain unknown origin. CT negative for acute findings. Unable to visualize the appendix labs are unremarkable. Ascending Colon ? bulked stool could be his reason for pain. Exacerbation of chronic right lower back pain with sciatica.
[2020-08-03] MEDS: Iopamidol 612 MG/ML 100 ML Bottle IVPUSH ONE (01:01)
[2020-08-03] MEDS: Polyethylene Glycol 3350 Powder 17 GM Packet PO ONE (02:20)
[2020-08-03 03:02] VITALS: BP 159/97; PULSE 71
--- NOTE | 2020-08-03 08:16 | CT ---
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
== END 2020-08-03 02:30 | disposition home or self-care (01) ==
LOC: VM.ED 23:30
DX: R10.31 Right lower quadrant pain (principal); M54.17 Radiculopathy, lumbosacral region; R74.02 Elevation of levels of lactic acid dehydrogenase [LDH]; I48.91 Unspecified atrial fibrillation; I25.10 Atherosclerotic heart disease of native coronary artery without angina pectoris; E78.00 Pure hypercholesterolemia, unspecified; I10 Essential (primary) hypertension; I25.2 Old myocardial infarction; M19.90 Unspecified osteoarthritis, unspecified site; E11.9 Type 2 diabetes mellitus without complications; E66.9 Obesity, unspecified; Z68.29 Body mass index [BMI] 29.0-29.9, adult; Z91.011 Allergy to milk products; Z88.5 Allergy status to narcotic agent; Z79.01 Long term (current) use of anticoagulants; Z79.02 Long term (current) use of antithrombotics/antiplatelets; Z79.899 Other long term (current) drug therapy; G89.29 Other chronic pain
CPT/HCPCS: 64483; 74177; 80053; 81001; 83605; 83690; 85025; 85610; 85730; 86140; 96374; 96375; 99214; 99284; A9270; J1030; J1170; J1200; J3010; J3360; J7120; Q9967

== ENCOUNTER 2020-10-01 05:35 | Emergency (ER) | payer MEDICARE, OTHER ==
[2020-10-01] MEDS: HYDROmorphone 1 MG/ML Syringe IVPUSH ONE ×2 (06:00→06:21)
[2020-10-01 06:06] VITALS: PULSE 95
[2020-10-01] MEDS ORDERED: HYDROmorphone 1 MG/ML Syringe ONE (06:10)
[2020-10-01] MEDS ORDERED: HYDROmorphone 1 MG/ML Syringe IVPUSH ONE ×2 (06:13→06:26)
[2020-10-01] MEDS ORDERED: LORazepam 2 MG/ML SDV IVPUSH ONE (06:14)
--- NOTE | 2020-10-01 06:16 | EDM.PDOC ---
ED HPI GENERAL MEDICAL PROBLEM - General Chief Complaint: Lower Extremity Injury/Pain Stated Complaint: right leg pain Time Seen by Provider: 10/01/20 05:54 Source of Information: Reports: Patient - History of Present Illness INITIAL COMMENTS - FREE TEXT/NARRATIVE: Romero is a 80 y/o male who comes to the ER with right hip pain and right lower leg swelling. He reports being seen at the [facility] here in [place] on Friday by Dr Grijalva and then being sent to the [facility] ER for imaging. He was advised at that time that he had a mass in his pelvis and there was consideration of him being admitted in [place] for further workup. He opted not to stay in the hospital. Tonight about midnight he started having severe pain in his right hip region and he also reported increased pain and swelling in the the right leg. Right Leg Pain Score (Numeric/FACES): 8 - Related Data Allergies Allergy/AdvReac Type Severity Reaction Status Date / Time lactose Allergy Other Verified 08/02/20 23:43 morphine AdvReac Headache Verified 08/02/20 23:43 Home Meds: Home Meds Bimatoprost [LUMIGAN 0.01% Ophth Soln] 1 drop EYERT BEDTIME 01/13/14 [History] Brimonidine [Alphagan P 0.15% Ophth Soln] 1 drop EYERT BID 01/13/14 [History] Dorzolamide HCl/Timolol Maleat [Cosopt Eye Drops] 1 drop EYEBOTH BID 01/13/14 [History] Enalapril Maleate [Vasotec] 10 mg PO DAILY 01/13/14 [History] Metoprolol Tartrate [Lopressor] 12.5 mg PO BID 01/13/14 [History] Multivitamin [Multi Vitamin Daily] 1 tab PO DAILY 01/13/14 [History] Nitroglycerin [Nitrostat] 1 tab SL ASDIRECTED PRN 01/13/14 [History] Rivaroxaban [Xarelto] 20 mg PO DAILY 01/13/14 [History] Glucosamine/D3/Boswellia Aleyda [Glucosamine Complex Tablet] 1 cap PO DAILY 12/16/16 [History] atorvaSTATin [Lipitor] 40 mg PO DAILY 12/16/16 [History] Cholecalciferol (Vitamin D3) [Vitamin D3] 1,000 unit PO DAILY 08/13/17 [History] [place]-3/DHA/Epa/Fish Oil [[place]-3 Fish Oil 1,000 MG Sfgl] 1 cap PO DAILY 08/13/17 [History] Clopidogrel [Plavix] 75 mg PO DAILY 06/29/20 [History] Psyllium Husk (With Sugar) [Metamucil Powder] 1 tbsp PO DAILY 06/29/20 [History] hydroCHLOROthiazide [Hydrochlorothiazide] 25 mg PO DAILY 06/29/20 [History] metFORMIN HCl [Glucophage] 500 mg PO DAILY 06/29/20 [History] Enoxaparin [Lovenox] 40 mg SUBCUT DAILY 7 Days #7 syringe 07/11/20 [Rx] Past Medical History HEENT History: Reports: Cataract, Glaucoma Cardiovascular History: Reports: Afib, Aneurysm, Arrhythmia, CAD, High Cholesterol, Hypertension, [place], PTCA Other Cardiovascular History: LEFT VENTRICULAR ANEURYSM. ACSENDING AORTIC ANEURYSM. Edema Respiratory History: Reports: None Gastrointestinal History: Reports: Colon Polyp Genitourinary History: Reports: BPH, Renal Calculus, Other (See Below) Other Genitourinary History: HYDROCELE Musculoskeletal History: Reports: Arthritis, Back Pain, Chronic Other Musculoskeletal History: Chronic right-sided low back without sciatica. Right Leg pain (swelling) Neurological History: Reports: None Psychiatric History: Reports: None Endocrine/Metabolic History: Reports: Diabetes, Type II, Obesity/BMI 30+ Hematologic History: Reports: None Immunologic History: Reports: None Oncologic (Cancer) History: Reports: Basal Cell Carcinoma, Prostate Dermatologic History: Reports: Other (See Below) Other Dermatologic History: warts - Past Surgical History Head Surgeries/Procedures: Reports: Other (See Below) HEENT Surgical History: Reports: Cataract Surgery GI Surgical History: Reports: Colonoscopy Male Surgical History: Reports: Lithotripsy (ESWL), Vasectomy Musculoskeletal Surgical History: Reports: Arthroscopic Procedure Other Musculoskeletal Surgeries/Procedures:: ELBOW. 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) Review of Systems - Review of Systems Review Of Systems: See Below Constitutional: Reports: No Symptoms Eyes: Reports: No Symptoms Ears: Reports: No Symptoms Nose: Reports: No Symptoms Mouth/Throat: Reports: No Symptoms Respiratory: Reports: No Symptoms Cardiovascular: Reports: Edema (right leg) GI/Abdominal: Reports: No Symptoms Genitourinary: Reports: No Symptoms Musculoskeletal: Reports: Leg Pain Skin: Reports: No Symptoms Neurological: Reports: No Symptoms Psychiatric: Reports: No Symptoms ED EXAM, GENERAL - Physical Exam Exam: See Below Exam Limited By: No Limitations General Appearance: Alert, WD/WN, No Apparent Distress (Elderly male, obviosuly in pain and having a hard time getting comfortable.) Ears: Hearing Grossly Normal Head: Atraumatic, Normocephalic Neck: Normal Inspection Respiratory/Chest: No Respiratory Distress Cardiovascular: Normal Peripheral Pulses, Regular Rate, Rhythm Peripheral Pulses: 1+: Dorsalis Pedis (R) (Doppler-thready and faint), 3+: Dorsalis Pedis (L) (Doppler-strong and regular) GI/Abdominal: Normal Bowel Sounds, Soft (Male) Exam: Deferred Rectal (Males) Exam: Deferred Back Exam: Normal Inspection Extremities: Other (Right leg is swollen, almost 2x the size of the left, nonpitting edema; cool to touch) Neurological: Alert, Oriented, CN II-XII Intact, Normal Cognition Psychiatric: Anxious Skin Exam: Warm, Dry, Intact, Normal Color Course - Vital Signs Text/Narrative:: 0554 The patient was seen by the [facility]. He was given Dilaudid 1mg IVP for pain. Doppler used to find pulses in right leg. 0610 [facility] contacted and case discussed with ER physician, Dr Davis. Patient accepted for transfer to the [facility] ER. Plan ALG ground transfer. Pain continuing and pt having no improvement from pain meds given. Dilaudid 1mg IVP more given along with Lorazepam 1mg IVP. He was given a 3rd 1mg of Dilaudid IVP in the ER prior to departing with [facility] for [place]. His pain had improved with the meds, but he was still somewhat uncomfortable. Last Recorded V/S: Last Vital Signs Temp 36.2 C 10/01/20 05:54 Pulse 95 10/01/20 05:54 Resp 14 10/01/20 05:54 BP Pulse Ox 94 L 10/01/20 05:54 - Orders/Labs/Meds Meds: Medications Discontinued Medications Generic Name Dose Route Start Last Admin Trade Name Freq PRN Reason Stop Dose Admin Hydromorphone HCl Confirm 10/01/20 06:10 Hydromorphone 1 Mg/Ml Syringe Administered 10/01/20 06:11 Dose 1 mg .ROUTE .STK-MED ONE Hydromorphone HCl 1 mg 10/01/20 06:02 10/01/20 06:21 Hydromorphone 1 Mg/Ml Syringe IVPUSH 10/01/20 06:03 1 mg ONETIME ONE Administration Hydromorphone HCl 1 mg 10/01/20 06:13 Hydromorphone 1 Mg/Ml Syringe IVPUSH 10/01/20 06:14 ONETIME ONE Lorazepam 1 mg 10/01/20 06:14 10/01/20 06:19 Lorazepam 2 Mg/Ml Sdv IVPUSH 10/01/20 06:15 1 mg STAT ONE Administration Departure - Departure Time of Disposition: 06:15 Disposition: DC/Tfer to Acute Hospital 02 Condition: Good Clinical Impression: Right leg swelling, Hx of pelvic mass - Discharge Information Forms: ED Department Discharge, Interfacility Transfer NISHA Sepsis Event Note (ED) - Evaluation Sepsis Screening Result: No Definite Risk - Focused Exam Vital Signs: Vital Signs Temp Pulse Resp Pulse Ox 10/01/20 05:54 36.2 C 95 14 94 L - Assessment/Plan Assessment:: 1)Right Leg Swelling 2)Hx Pelvic Mass Plan: -Transfer to [facility] ER to Dr Davis via [facility]
== END 2020-10-01 06:48 | disposition short-term general hospital (02) ==
LOC: VM.ED 05:35
DX: R22.41 Localized swelling, mass and lump, right lower limb (principal); I48.91 Unspecified atrial fibrillation; I25.10 Atherosclerotic heart disease of native coronary artery without angina pectoris; E78.00 Pure hypercholesterolemia, unspecified; I10 Essential (primary) hypertension; I25.2 Old myocardial infarction; E11.9 Type 2 diabetes mellitus without complications; E66.9 Obesity, unspecified; Z68.27 Body mass index [BMI] 27.0-27.9, adult; Z91.048 Other nonmedicinal substance allergy status; Z88.5 Allergy status to narcotic agent; Z79.01 Long term (current) use of anticoagulants; Z79.02 Long term (current) use of antithrombotics/antiplatelets; Z79.84 Long term (current) use of oral hypoglycemic drugs; Z79.899 Other long term (current) drug therapy
CPT/HCPCS: 96374; 96375; 96376; 99283; 99284-25; J1170; J2060

== ENCOUNTER 2020-12-04 21:38 | Emergency (ER) | payer MEDICARE, OTHER ==
[2020-12-04] MEDS ORDERED: Sodium Chloride 0.9% 10 ML Syringe FLUSH PRN (22:15)
[2020-12-04] MEDS ORDERED: Adenosine 6 MG/2 ML SDV IVPUSH ONE (22:16)
[2020-12-04] MEDS ORDERED: Midazolam 1 MG/ML 2 ML SDV ONE (22:16)
[2020-12-04] MEDS ORDERED: Midazolam 1 MG/ML 2 ML SDV IVPUSH ONE (22:16)
[2020-12-04] MEDS ORDERED: Sodium Chloride 0.9% 1,000 ML IV ONE (22:17)
[2020-12-04 22:30] LABS: PTT,PARTIAL THROMBOPLSTIN TIME 27.6 SEC (25.6-32.8)
[2020-12-04] MEDS ORDERED: Diltiazem 125 MG in Sodium Chloride 0.9% 100 ML IV SCH (22:30)
[2020-12-04] MEDS ORDERED: Diltiazem 125 MG/25 ML SDV ONE (22:34)
--- NOTE | 2020-12-04 22:37 | EDM.PDOC ---
ED HPI GENERAL MEDICAL PROBLEM - General Time Seen by Provider: 12/04/20 21:41 Source of Information: Reports: Patient, EMS, Family - History of Present Illness INITIAL COMMENTS - FREE TEXT/NARRATIVE: Romero is a 80 y/o male who is brought to the ER by EMS with SOB. He was getting up and walking to the bathroom and suddenly got SOB and felt ill. He denies any chest pain, just overall discomfort and hard to breath. Sats were in the upper 70s when EMS arrived and placed him on oxygen. His sats would not come up and he was placed on NRB. He is currently undergoing chemo and this is his off week. - Related Data Allergies Allergy/AdvReac Type Severity Reaction Status Date / Time lactose Allergy Other Verified 08/02/20 23:43 morphine AdvReac Headache Verified 08/02/20 23:43 Home Meds: Home Meds Bimatoprost [LUMIGAN 0.01% Ophth Soln] 1 drop EYERT BEDTIME 01/13/14 [History] Brimonidine [Alphagan P 0.15% Ophth Soln] 1 drop EYERT BID 01/13/14 [History] Dorzolamide HCl/Timolol Maleat [Cosopt Eye Drops] 1 drop EYEBOTH BID 01/13/14 [History] Enalapril Maleate [Vasotec] 10 mg PO DAILY 01/13/14 [History] Metoprolol Tartrate [Lopressor] 12.5 mg PO BID 01/13/14 [History] Multivitamin [Multi Vitamin Daily] 1 tab PO DAILY 01/13/14 [History] Nitroglycerin [Nitrostat] 1 tab SL ASDIRECTED PRN 01/13/14 [History] Rivaroxaban [Xarelto] 20 mg PO DAILY 01/13/14 [History] Glucosamine/D3/Boswellia Aleyda [Glucosamine Complex Tablet] 1 cap PO DAILY 12/16/16 [History] atorvaSTATin [Lipitor] 40 mg PO DAILY 12/16/16 [History] Cholecalciferol (Vitamin D3) [Vitamin D3] 1,000 unit PO DAILY 08/13/17 [History] [place]-3/DHA/Epa/Fish Oil [[place]-3 Fish Oil 1,000 MG Sfgl] 1 cap PO DAILY 08/13/17 [History] Clopidogrel [Plavix] 75 mg PO DAILY 06/29/20 [History] Psyllium Husk (With Sugar) [Metamucil Powder] 1 tbsp PO DAILY 06/29/20 [History] hydroCHLOROthiazide [Hydrochlorothiazide] 25 mg PO DAILY 06/29/20 [History] metFORMIN HCl [Glucophage] 500 mg PO DAILY 06/29/20 [History] Enoxaparin [Lovenox] 40 mg SUBCUT DAILY 7 Days #7 syringe 07/11/20 [Rx] Past Medical History HEENT History: Reports: Cataract, Glaucoma Cardiovascular History: Reports: Afib, Aneurysm, Arrhythmia, CAD, High Cholesterol, Hypertension, [place], PTCA Other Cardiovascular History: LEFT VENTRICULAR ANEURYSM. ACSENDING AORTIC ANEURYSM. Edema Respiratory History: Reports: None Gastrointestinal History: Reports: Colon Polyp Genitourinary History: Reports: BPH, Renal Calculus, Other (See Below) Other Genitourinary History: HYDROCELE Musculoskeletal History: Reports: Arthritis, Back Pain, Chronic Other Musculoskeletal History: Chronic right-sided low back without sciatica. Right Leg pain (swelling) Neurological History: Reports: None Psychiatric History: Reports: None Endocrine/Metabolic History: Reports: Diabetes, Type II, Obesity/BMI 30+ Hematologic History: Reports: None Immunologic History: Reports: None Oncologic (Cancer) History: Reports: Basal Cell Carcinoma, Prostate Dermatologic History: Reports: Other (See Below) Other Dermatologic History: warts - Past Surgical History Head Surgeries/Procedures: Reports: Other (See Below) HEENT Surgical History: Reports: Cataract Surgery GI Surgical History: Reports: Colonoscopy Male Surgical History: Reports: Lithotripsy (ESWL), Vasectomy Musculoskeletal Surgical History: Reports: Arthroscopic Procedure Other Musculoskeletal Surgeries/Procedures:: ELBOW. 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) Review of Systems - Review of Systems Review Of Systems: See Below Constitutional: Reports: Weakness Eyes: Reports: No Symptoms Ears: Reports: No Symptoms Nose: Reports: No Symptoms Mouth/Throat: Reports: No Symptoms Respiratory: Reports: Shortness of Breath Cardiovascular: Reports: Lightheadedness, Palpitations GI/Abdominal: Reports: Decreased Appetite Genitourinary: Reports: No Symptoms Musculoskeletal: Reports: No Symptoms Skin: Reports: No Symptoms Neurological: Reports: No Symptoms Psychiatric: Reports: No Symptoms ED EXAM, GENERAL - Physical Exam Exam: See Below General Appearance: Alert, Thin (Elderly male, look ill.) Eye Exam: Bilateral Eye: PERRL Ears: Hearing Grossly Normal Nose: Normal Inspection, Normal Mucosa Throat/Mouth: Normal Inspection, Normal Teeth, Normal Oropharynx, Normal Voice Head: Atraumatic, Normocephalic Neck: Normal Inspection, Supple Respiratory/Chest: No Respiratory Distress, Lungs Clear Cardiovascular: Normal Peripheral Pulses, Regular Rate, Rhythm, No JVD GI/Abdominal: Normal Bowel Sounds, Soft, Non-Tender Rectal (Males) Exam: Deferred Back Exam: Other (note right sided nephrostomy tube in place) Extremities: Normal Inspection, Normal Range of Motion, No Pedal Edema, Pallor Neurological: Alert, Oriented, CN II-XII Intact Skin Exam: Warm, Dry, Pallor Lymphatic: No Adenopathy #1 Interpretation EKG Date: 12/04/20 Time: 21:46 Rhythm: A-Fib P-Wave: Absent QRS: Wide ST-T: Normal EKG Interpretation Comments: Atrial Fib with RVR; RBBB Course - Vital Signs Text/Narrative:: 2140 The patient was seen by the ETL DEVELOPER on arrival. EKG, CXR, and Labs ordered. Wilmer Nova was contacted and assisted with care. Dr Vasquez, ER dr at [place] assisted with EKG interpretation and med management. Initial consideration given to cardioversion, but then opted for meds. Patient given Adenosine 6 mg IVP and no decrease in HR noted. He was then given Adenosine 12mg IVP and the rate slowed to the 70s, but then returned to the 160-170s. Cardiazem gtt was started and IV fluids continued. Rate did decrease slightly to the 150s, but BP was slightly decreased. Labs reviewed and noted BUN=68, Foil Wrapper=3.2, K=5.2, WBC=46.6, Neuts=90%. Following review of labs, he was given Vanco 1gm IVPB and Cefepime 2gm IVP prior to departure since he had an elevated WBC. Lactic Acid and Blood Cx not obtained prior to transport. Patient left with IV fluids infusing and Cardizem gtt infusing. - Orders/Labs/Meds Orders: Active Orders 24 hr Category Date Time Status EKG Documentation Completion [RC] STAT Care 12/04/20 22:15 Active Chest 1V Frontal [CR] Stat Exams 12/04/20 22:15 Taken Diltiazem 125 mg Med 12/04/20 22:30 Active Sodium Chloride 0.9% [Normal Saline] 100 ml IV TITRATE Sodium Chloride 0.9% [Saline Flush] Med 12/04/20 22:15 Active 10 ml FLUSH ASDIRECTED PRN Vancomycin 1 gm Med 12/04/20 22:39 Active Sodium Chloride 0.9% [Normal Saline (AdvBag)] 250 ml IV STAT Saline Lock Insert [OM.PC] Stat Oth 12/04/20 22:15 Ordered Medication Orders Diltiazem HCl 125 mg/ Sodium (Chloride) 125 mls @ 5 mls/hr IV TITRATE LINDA; Protocol Vancomycin HCl 1 gm/ Sodium (Chloride) 250 mls @ 250 mls/hr IV STAT ONE Stop: 12/04/20 23:38 Sodium Chloride (Sodium Chloride 0.9% 10 Ml Syringe) 10 ml FLUSH ASDIRECTED PRN PRN Reason: Keep Vein Open Labs: Laboratory Tests 12/04/20 12/04/20 12/04/20 Range/Units 22:00 22:00 22:00 WBC 46.6 H* (4.0-10.0) x10^3/uL RBC 3.01 L (4.5-6.0) x10^6/uL Hgb 9.4 L D (14.0-18.0) g/dL Hct 28.7 L (40.0-52.0) % MCV 95.3 H (78.0-93.0) fL MCH 31.2 (26.0-32.0) pg MCHC 32.8 (32.0-36.0) g/dL RDW Coeff of Jamie 14.9 (10.0-15.0) % Plt Count 213 (130-400) x10^3/uL Add Manual Diff Yes Neutrophils % (Manual) 90 H (50-80) % Band Neutrophils % 5 (0-6) % Lymphocytes % (Manual) 2 L (25-50) % Monocytes % (Manual) 3 (2-11) % PT 15.0 H D (9.9-12.5) SEC INR 1.3 L (2.0-3.5) APTT 27.6 (25.6-32.8) SEC Sodium 133 L (136-145) mmol/L Potassium 5.3 H D (3.5-5.1) mmol/L Chloride 98 (98-107) mmol/L Carbon Dioxide 15 L D (21-32) mmol/L Anion Gap 25.3 H (5-15) mmol/L BUN 68 H D (7-18) mg/dL Creatinine 3.2 H* D (0.70-1.30) mg/dL Est Cr Clr Drug Dosing TNP Estimated GFR (MDRD) 19 Glucose 242 H (70-99) mg/dL Calcium 8.4 L (8.5-10.1) mg/dL Corrected Calcium 10.1 (8.5-10.1) mg/dL Magnesium 2.2 (1.8-2.4) mg/dL Total Bilirubin 0.6 (0.2-1.0) mg/dL AST 51 H (15-37) U/L ALT 50 (16-63) U/L Alkaline Phosphatase 506 H (46-116) U/L Troponin I High Sens 31 (<=76) ng/L Total Protein 6.5 (6.4-8.2) g/dL Albumin 1.9 L (3.4-5.0) g/dL Globulin 4.6 Albumin/Globulin Ratio 0.41 Meds: Medications Generic Name Dose Route Start Last Admin Trade Name Freq PRN Reason Stop Dose Admin Diltiazem HCl 125 mg/ Sodium 125 mls @ 5 mls/hr 12/04/20 22:30 Chloride IV TITRATE LINDA Protocol 5 MG/HR Vancomycin HCl 1 gm/ Sodium 250 mls @ 250 mls/hr 12/04/20 22:39 Chloride IV 12/04/20 23:38 STAT ONE Sodium Chloride 10 ml 12/04/20 22:15 Sodium Chloride 0.9% 10 Ml Syringe FLUSH ASDIRECTED PRN Keep Vein Open Discontinued Medications Generic Name Dose Route Start Last Admin Trade Name Freq PRN Reason Stop Dose Admin Adenosine 6 mg 12/04/20 22:16 Adenosine 6 Mg/2 Ml Sdv IVPUSH 12/04/20 22:17 NOW ONE Adenosine 12 mg 12/04/20 22:16 Adenosine 60 Mg/20 Ml Sdv IVPUSH 12/04/20 22:17 ONETIME ONE Cefepime HCl 2 gm 12/04/20 22:38 Cefepime 2 Gm Vial IVPUSH 12/04/20 22:39 STAT ONE Diltiazem HCl Confirm 12/04/20 22:34 Diltiazem 125 Mg/25 Ml Sdv Administered 12/04/20 22:35 Dose 125 mg .ROUTE .STK-MED ONE Sodium Chloride 1,000 mls @ 999 mls/hr 12/04/20 22:17 Normal Saline IV 12/04/20 23:17 ONETIME ONE Midazolam HCl Confirm 12/04/20 22:16 Midazolam 1 Mg/Ml 2 Ml Sdv Administered 12/04/20 22:17 Dose 4 mg .ROUTE .STK-MED ONE Midazolam HCl 3 mg 12/04/20 22:16 Midazolam 1 Mg/Ml 2 Ml Sdv IVPUSH 12/04/20 22:17 ONETIME ONE Departure - Departure Time of Disposition: 22:31 Disposition: DC/Tfer to Medicaid Nur Fac 64 Condition: Serious Clinical Impression: Atrial fibrillation with rapid ventricular response, Dehydration Elevated WBC count Qualifiers: Leukocytosis type: unspecified Qualified Code(s): D72.829 - Elevated white blood cell count, unspecified - Discharge Information Referrals: Kylie Zee DO [Primary Care Provider] - Forms: Interfacility Transfer EMTALA Additional Instructions: -Transfer to [facility] via [facility] to Dr Rodriguez - My Orders Last 24 Hours: My Active Orders 12/04/20 22:15 EKG Documentation Completion [RC] STAT Chest 1V Frontal [CR] Stat Sodium Chloride 0.9% [Saline Flush] 10 ml FLUSH ASDIRECTED PRN Saline Lock Insert [OM.PC] Stat 12/04/20 22:30 Diltiazem 125 mg Sodium Chloride 0.9% [Normal Saline] 100 ml IV TITRATE 12/04/20 22:39 Vancomycin 1 gm Sodium Chloride 0.9% [Normal Saline (AdvBag)] 250 ml IV STAT - Assessment/Plan Last 24 Hours: My Active Orders 12/04/20 22:15 EKG Documentation Completion [RC] STAT Chest 1V Frontal [CR] Stat Sodium Chloride 0.9% [Saline Flush] 10 ml FLUSH ASDIRECTED PRN Saline Lock Insert [OM.PC] Stat 12/04/20 22:30 Diltiazem 125 mg Sodium Chloride 0.9% [Normal Saline] 100 ml IV TITRATE 12/04/20 22:39 Vancomycin 1 gm Sodium Chloride 0.9% [Normal Saline (AdvBag)] 250 ml IV STAT Assessment:: 1)Atrial Fib with RVR 2)Elevated WBC 3)Dehydration Plan: As above
[2020-12-04] MEDS ORDERED: Cefepime 2 GM Vial IVPUSH ONE (22:38)
[2020-12-04 22:39] LABS: CHLORIDE,CL 98 mmol/L (98-107); SODIUM,NA 133 mmol/L (136-145)
[2020-12-04 22:40] LABS: ANION GAP 25.3 mmol/L (5-15)
[2020-12-05] MEDS ORDERED: Adenosine 6 MG/2 ML SDV ONE (02:09)
--- NOTE | 2020-12-05 08:30 | CR ---
[id number] RAD/RAD Chest Portable EXAM: PORTABLE CHEST INDICATION: SHORTNESS OF BREATH COMPARISON: August 13, 2017. DISCUSSION: The heart and lungs are normal in appearance. No effusions. Interval resolution of basilar atelectasis. IMPRESSION: 1. Negative exam. Jeffy Mosher MD 12/05/20 0829 Thank you for allowing us to participate in the care of your patient.
== END 2020-12-04 23:00 ==
LOC: VM.ED 21:38
DX: E86.0 Dehydration (principal); I48.91 Unspecified atrial fibrillation; D72.829 Elevated white blood cell count, unspecified; I25.10 Atherosclerotic heart disease of native coronary artery without angina pectoris; E78.00 Pure hypercholesterolemia, unspecified; I10 Essential (primary) hypertension; I25.2 Old myocardial infarction; E11.9 Type 2 diabetes mellitus without complications; M19.90 Unspecified osteoarthritis, unspecified site; E66.9 Obesity, unspecified; Z91.011 Allergy to milk products; Z88.5 Allergy status to narcotic agent; Z79.899 Other long term (current) drug therapy; Z79.01 Long term (current) use of anticoagulants; Z79.84 Long term (current) use of oral hypoglycemic drugs; Z79.02 Long term (current) use of antithrombotics/antiplatelets
CPT/HCPCS: 71045; 80053; 83735; 84484; 85025; 85610; 85730; 93005; 93010; 96374; 96375; 99284; 99285-25